=== PATIENT | female | born 1995 | race Caucasian/White ===

== ENCOUNTER 2016-10-01 23:08 | Emergency (ER) | payer OTHER ==
--- NOTE | 2016-10-02 02:22 | ED ORDER SUMMARY ---
..... Patient: HELENA CAMPOS OrderSheet [facility] VisitID: [id number] [address] [place] [address] 21y, F Registration Date/Time: 10/01/2016 ORDER SHEET Weight: 106.1 kg (stated) Allergies: Amoxicillin GENERAL ORDERS: MEDICATION ORDERS: Zofran ODT PO 4 mg (NOW) (02:19 10/02/2016 Tiesha Snider) (Ack 2:19 Doris R.N.) (2:21 Doris R.N.) IV FLUIDS: ORDER SHEET NOTES: [Electronically signed by Sherry Gaffney R.N. (02:35 10/02/2016)] [Electronically signed by Stoney Haney Dr. (09:52 10/02/2016)] [Electronically locked/signed by Sherry Gaffney R.N. (02:35 10/02/2016)]
--- NOTE | 2016-10-02 02:22 | ED ORDER SUMMARY ---
..... Patient: HELENA CAMPOS OrderSheet [facility] VisitID: [id number] [address] [place] [address] 21y, F Registration Date/Time: 10/01/2016 ORDER SHEET Weight: 106.1 kg (stated) Allergies: Amoxicillin GENERAL ORDERS: MEDICATION ORDERS: Zofran ODT PO 4 mg (NOW) (02:19 10/02/2016 Tiesha Snider) (Ack 2:19 Doris R.N.) (2:21 Doris R.N.) IV FLUIDS: ORDER SHEET NOTES: [Electronically signed by Sherry Gaffney R.N. (02:35 10/02/2016)] [Electronically signed by Stoney Haney Dr. (09:52 10/02/2016)] [Electronically locked/signed by Sherry Gaffney R.N. (02:35 10/02/2016)]
--- NOTE | 2016-10-02 02:22 | ED NURSING NOTES ---
Clinical Report - Nurses [facility] [address] [place] [address] 10/01/2016 23:08 Patient: HELENA CAMPOS TRIAGE Triage time 23:09. Acuity: LEVEL 4. Chief Complaint: TENDER AREA. Alert. --23:16 Sherry Gaffney R.N. 23:09 10/01/16. BP: 132/83. HR: 120. RR: 18. O2 saturation: 99% on room air. Temp: 99.2 F (oral). Dueñas-Gil pain scale: 4/10. --23:16 Sherry Gaffney R.N. Weight: 106.1 kg stated. Height/Length: 63 inches Per Patient. BMI: 41.4. --23:15 Sherry Gaffney R.N. Medications Tramadol HCL Oral, as needed, endometriosos. --23:12 Sherry Gaffney R.N. Sulfa antibiotic, last dose last night (lost bottle today). --23:13 Sherry Gaffney R.N. Allergies Amoxicillin. --23:12 Sherry Gaffney R.N. History Arrived by EMS. Primary physician (Deyvi ([facility])). ( pt was seen yesterday and today by [facility], today they attempted to drain wound but pt states they couldn't get anything to drain.). Reported as located on the scalp. Onset. (about 1 weeks ago). She has had diarrhea, nausea and vomiting. 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 PAST MEDICAL HX: Immunizations: up-to-date. Last normal menstrual period was 3 weeks ago. Sexual history - sexually active. No contraception. SOCIAL HX: Never smoker. Occasional alcohol use. No drug use. NUTRITIONAL RISK ASSESSMENT: The nutritional risk assessment revealed no deficiencies. FUNCTIONAL ASSESSMENT: Functional assessment: no impairments noted. --23:16 Sherry Gaffney R.N. PROBLEMS: Gastroenteritis. Gastritis. --23:14 Gaffney, Sherry, R.N. ADDITIONAL SURGERIES: Endometrial biopsy. R eye surgery ([facility]). --23:14 Sherry Gaffney R.N. Interventions ID band on patient. To treatment room. --23:16 Sherry Gaffney R.N. PHYSICAL ASSESSMENT To room via stretcher. Patient gowned. GENERAL / NEURO / PSYCH: Alert. The patient does not appear to be in acute distress. Oriented X 4. HEENT: Mucous membranes are pink. RESPIRATORY: Respirations not labored. CVS: Capillary refill less than 2 seconds. SKIN: Skin is warm and dry. --23:16 Sherry Gaffney R.N. NURSING PROGRESS NOTES Head of bed elevated. Two patient identifiers checked. Call light placed in reach. Side rails up x 1. Bed placed in lowest position. Brakes of bed on. --23:16 Sherry Gaffney R.N. Patient ready for evaluation- chart flagged. --23:16 Sherry Gaffney R.N. Family informed about reason for wait and about plan of care. --00:49 Sherry Gaffney R.N. 02:21 10/02/2016 Zofran ODT (Ondansetron) PO Oral Disintegrating Tablets 4 mg given. Allergies verified and confirmed 5 rights. --02:21 Sherry Gaffney R.N. DISPOSITION / DISCHARGE Condition at departure: stable. No learning barriers present. Discharge instructions provided and reviewed with the patient. Reviewed medication(s) side effects, precautions, dosing and course information. Prescription(s) given to the patient. Patient verbalized understanding. Written instructions provided in Azeri. The patient was discharged home and accompanied by diagnostics tech. She left the Emergency Department ambulatory and via private vehicle. Gut Puller driving. --02:34 Sherry Gaffney R.N. 02:33 10/02/16. BP: 125/74. HR: 118. RR: 15. O2 saturation: 98% on room air. Temp: deferred. Dueñas-Gil pain scale: 210. --02:34 Sherry Gaffney R.N. ( EDMD notified of heart rate at discharge.). --02:34 Sherry Gaffney R.N. Locked/Released at 10/02/2016 2:35 by Sherry Gaffney R.N.
--- NOTE | 2016-10-02 02:22 | ED NURSING NOTES ---
Clinical Report - Nurses [facility] [address] [place] [address] 10/01/2016 23:08 Patient: HELENA CAMPOS TRIAGE Triage time 23:09. Acuity: LEVEL 4. Chief Complaint: TENDER AREA. Alert. --23:16 Sherry Gaffney R.N. 23:09 10/01/16. BP: 132/83. HR: 120. RR: 18. O2 saturation: 99% on room air. Temp: 99.2 F (oral). Dueñas-Gil pain scale: 4/10. --23:16 Sherry Gaffney R.N. Weight: 106.1 kg stated. Height/Length: 63 inches Per Patient. BMI: 41.4. --23:15 Sherry Gaffney R.N. Medications Tramadol HCL Oral, as needed, endometriosos. --23:12 Sherry Gaffney R.N. Sulfa antibiotic, last dose last night (lost bottle today). --23:13 Sherry Gaffney R.N. Allergies Amoxicillin. --23:12 Sherry Gaffney R.N. History Arrived by EMS. Primary physician (Deyvi ([facility])). ( pt was seen yesterday and today by [facility] [place], today they attempted to drain wound but pt states they couldn't get anything to drain.). Reported as located on the scalp. Onset. (about 1 weeks ago). She has had diarrhea, nausea and vomiting. 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 PAST MEDICAL HX: Immunizations: up-to-date. Last normal menstrual period was 3 weeks ago. Sexual history - sexually active. No contraception. SOCIAL HX: Never smoker. Occasional alcohol use. No drug use. NUTRITIONAL RISK ASSESSMENT: The nutritional risk assessment revealed no deficiencies. FUNCTIONAL ASSESSMENT: Functional assessment: no impairments noted. --23:16 Sherry Gaffney R.N. PROBLEMS: Gastroenteritis. Gastritis. --23:14 Gaffney, Sherry, R.N. ADDITIONAL SURGERIES: Endometrial biopsy. R eye surgery ([facility]). --23:14 Sherry Gaffney R.N. Interventions ID band on patient. To treatment room. --23:16 Sherry Gaffney R.N. PHYSICAL ASSESSMENT To room via stretcher. Patient gowned. GENERAL / NEURO / PSYCH: Alert. The patient does not appear to be in acute distress. Oriented X 4. HEENT: Mucous membranes are pink. RESPIRATORY: Respirations not labored. CVS: Capillary refill less than 2 seconds. SKIN: Skin is warm and dry. --23:16 Sherry Gaffney R.N. NURSING PROGRESS NOTES Head of bed elevated. Two patient identifiers checked. Call light placed in reach. Side rails up x 1. Bed placed in lowest position. Brakes of bed on. --23:16 Sherry Gaffney R.N. Patient ready for evaluation- chart flagged. --23:16 Sherry Gaffney R.N. Family informed about reason for wait and about plan of care. --00:49 Sherry Gaffney R.N. 02:21 10/02/2016 Zofran ODT (Ondansetron) PO Oral Disintegrating Tablets 4 mg given. Allergies verified and confirmed 5 rights. --02:21 Sherry Gaffney R.N. DISPOSITION / DISCHARGE Condition at departure: stable. No learning barriers present. Discharge instructions provided and reviewed with the patient. Reviewed medication(s) side effects, precautions, dosing and course information. Prescription(s) given to the patient. Patient verbalized understanding. Written instructions provided in Latvian. The patient was discharged home and accompanied by label remover. She left the Emergency Department ambulatory and via private vehicle. Voice Over Announcer driving. --02:34 Sherry Gaffney R.N. 02:33 10/02/16. BP: 125/74. HR: 118. RR: 15. O2 saturation: 98% on room air. Temp: deferred. Dueñas-Gil pain scale: 210. --02:34 Sherry Gaffney R.N. ( EDMD notified of heart rate at discharge.). --02:34 Sherry Gaffney R.N. Locked/Released at 10/02/2016 2:35 by Sherry Gaffney R.N.
--- NOTE | 2016-10-02 02:22 | ED CLINICAL REPORT ---
Clinical Report - Physicians/Mid Levels [facility] [address] [place] [address] 10/01/2016 23:08 Patient: HELENA CAMPOS Time Seen: 01:08; initial patient contact. Arrived- By private vehicle. Historian- patient. HISTORY OF PRESENT ILLNESS Chief Complaint: SKIN RASH and BOIL. This started about 1 week ago and is still present. It was gradual in onset. It is described as itchy and painful. It has been located on the scalp. No recent medication or insect bite. Similar symptoms previously: None. Recent medical care: The patient was seen recently in a clinic (Started on Sulfe, lost Rx. Attempted I&D, nothing drained). REVIEW OF SYSTEMS No fever or enlarged lymph nodes. All systems otherwise negative, except as recorded above. PAST HISTORY Gastroenteritis. Gastritis. ADDITIONAL SURGERIES: Endometrial biopsy. R eye surgery ([facility]). SOCIAL HISTORY Never smoker. Occasional alcohol use. No drug use. ADDITIONAL NOTES The nursing notes have been reviewed. PHYSICAL EXAM Vital Signs: 10/01/2016 23:09 BP: 132/83. HR: 120. RR: 18. O2 saturation: 99%. Temp: 99.2 F. Dueñas-Gil pain scale: 4/10. Have been reviewed. Blood pressure normal. Tachycardic. Respiratory rate normal. Temperature normal. Oxygen saturation normal. Appearance: Alert. Oriented X3. Anxious. Neck: No lymphadenopathy. Skin: Single small tender indurated area to the scalp. No fluctuance, pointing, drainage or cellulitis. Mild, papular, weeping skin rash on the scalp. Neuro: Oriented X 3. PROGRESS AND PROCEDURES Disposition: Discharged home in good and improved condition. Condition: good. CLINICAL IMPRESSION Nonbullous impetigo Sebaceous cyst INSTRUCTIONS Prescription Medications: Zofran (orally disintegrating tablets) 4 mg: take 1 orally every 6 hours as needed for nausea and vomiting. Dispense ten (10). No refill. Substitution is permissible. Clindamycin 300 mg: take 1 capsule orally every 6 hours for 7 days. No refill. Follow-up: Screening today revealed the patient's blood pressure to be in the pre-hypertensive range. The patient should follow up with a primary care provider for blood pressure management. Follow-up with: Duran Gómez MD, General Surgeon, , [facility], [address] [place] [address] [address], [place], [id number] Follow up. Reason for referral: Inclusion cyst of scalp. (Electronically signed by Stoney Haney Dr. 10/02/2016 9:52)
--- NOTE | 2016-10-02 02:22 | ED CLINICAL REPORT ---
Clinical Report - Physicians/Mid Levels [facility] [address] [place] [address] 10/01/2016 23:08 Patient: HELENA CAMPOS Time Seen: 01:08; initial patient contact. Arrived- By private vehicle. Historian- patient. HISTORY OF PRESENT ILLNESS Chief Complaint: SKIN RASH and BOIL. This started about 1 week ago and is still present. It was gradual in onset. It is described as itchy and painful. It has been located on the scalp. No recent medication or insect bite. Similar symptoms previously: None. Recent medical care: The patient was seen recently in a clinic (Started on Sulfe, lost Rx. Attempted I&D, nothing drained). REVIEW OF SYSTEMS No fever or enlarged lymph nodes. All systems otherwise negative, except as recorded above. PAST HISTORY Gastroenteritis. Gastritis. ADDITIONAL SURGERIES: Endometrial biopsy. R eye surgery ([facility]). SOCIAL HISTORY Never smoker. Occasional alcohol use. No drug use. ADDITIONAL NOTES The nursing notes have been reviewed. PHYSICAL EXAM Vital Signs: 10/01/2016 23:09 BP: 132/83. HR: 120. RR: 18. O2 saturation: 99%. Temp: 99.2 F. Dueñas-Gil pain scale: 4/10. Have been reviewed. Blood pressure normal. Tachycardic. Respiratory rate normal. Temperature normal. Oxygen saturation normal. Appearance: Alert. Oriented X3. Anxious. Neck: No lymphadenopathy. Skin: Single small tender indurated area to the scalp. No fluctuance, pointing, drainage or cellulitis. Mild, papular, weeping skin rash on the scalp. Neuro: Oriented X 3. PROGRESS AND PROCEDURES Disposition: Discharged home in good and improved condition. Condition: good. CLINICAL IMPRESSION Nonbullous impetigo Sebaceous cyst INSTRUCTIONS Prescription Medications: Zofran (orally disintegrating tablets) 4 mg: take 1 orally every 6 hours as needed for nausea and vomiting. Dispense ten (10). No refill. Substitution is permissible. Clindamycin 300 mg: take 1 capsule orally every 6 hours for 7 days. No refill. Follow-up: Screening today revealed the patient's blood pressure to be in the pre-hypertensive range. The patient should follow up with a primary care provider for blood pressure management. Follow-up with: Duran Gómez MD, General Surgeon, , [facility], [address] [place] [address] [address], [place], [id number] Follow up. Reason for referral: Inclusion cyst of scalp. (Electronically signed by Stoney Haney Dr. 10/02/2016 9:52)
--- NOTE | 2016-10-02 09:52 | ED DISCHARGE INSTRUCTIONS ---
Patient: HELENA CAMPOS General Instructions Located [facility] VisitID: [id number] [address] [place] [address] 21y, F Registration Date/Time: 10/01/2016 Nonbullous impetigo Sebaceous cyst INSTRUCTIONS Prescription Medications: Zofran (orally disintegrating tablets) 4 mg: take 1 orally every 6 hours as needed for nausea and vomiting. Dispense ten (10). No refill. Substitution is permissible. Clindamycin 300 mg: take 1 capsule orally every 6 hours for 7 days. No refill. Follow-up: Screening today revealed the patient's blood pressure to be in the pre-hypertensive range. The patient should follow up with a primary care provider for blood pressure management. Follow-up with: Duran Gómez MD, General Surgeon, , [facility], [address] [place] [address] Follow up. Reason for referral: Inclusion cyst of scalp. ADDITIONAL INFORMATION Impetigo Impetigo is the name for a bacterial infection of the skin. It is common in children. It may start as an infected insect bite or scratch and spread rapidly to other areas of the body. It is contagious and can be given to other children by touching. The sores usually have a alvarez brown crust and grow gradually larger as they spread. Impetigo requires treatment with an antibiotic. Home care The following guidelines will help you care for your infection at home: Trim fingernails and cover sores with an adhesive bandage if necessary to prevent scratching. Picking at the sores may leave a scar. Wash hands (yours and your child's) often. This will avoid spreading the infection to other parts of the body and to other children. Do not let your child share washcloths, towels, pillows, sheets, or clothes with others. Wash these items in hot water before using again. The sores should be washed three times a day with soap and water. Use a washcloth to scrub the sores and remove the crust. Then apply an antibacterial cream as directed. If antibiotic pills or liquid was prescribed, be sure your child takes all the medicine until it is gone. Your child should stay out of school until completing two full days of antibiotic treatment. Use acetaminophen for fever, fussiness or discomfort, unless another medicine was prescribed. In infants over six months of age, you may use ibuprofen instead of acetaminophen. If your child has chronic liver or kidney disease or has ever had a stomach ulcer or GI bleeding, talk with your doctor before using these medicines. (Aspirin should never be used in anyone under 18 years of age who is ill with a fever. It may cause severe liver damage. Follow-up care Follow up with your doctor or this facility if the sores continue to spread after three days of treatment. It will take about 710 days to heal completely. When to seek medical care Get prompt medical attention if any of the following occur: Increasing number of sores or spreading areas of redness after two days of treatment with antibiotics Increasing swelling, or pain Fever of 100.4F (38C) oral or 101.4F (38.5C) rectal or higher, not better with fever medication Increased amounts of fluid or pus coming from the sores Unusual drowsiness, weakness, or change in behavior Loss of appetite or vomiting Sebaceous Cyst [No Infection] A Sebaceous Cyst occurs when the opening of an oil gland in the skin becomes blocked. The gland swells with skin oil and skin cells. As it gets bigger, it appears as a small painless lump under the skin. Unless a sebaceous cyst becomes infected, it is painless and causes no symptoms. Home Care: 1) Clean the cyst area when bathing or showering. 2) Be alert for signs of infection listed below. Follow Up with your doctor or as advised by our staff. Get Prompt Medical Attention if any of the following occur: -- Swelling, redness or pain -- Pus coming from the cyst Ondansetron Oral disintegrating tablet What is this medicine? ONDANSETRON (on SUSAN se neal) is used to treat nausea and vomiting caused by chemotherapy. It is also used to prevent or treat nausea and vomiting after surgery. How should I use this medicine? These tablets are made to dissolve in the mouth. Do not try to push the tablet through the foil backing. With dry hands, peel away the foil backing and gently remove the tablet. Place the tablet in the mouth and allow it to dissolve, then swallow. While you may take these tablets with water, it is not necessary to do so. Talk to your training mgr regarding the use of this medicine in children. Special care may be needed. What side effects may I notice from receiving this medicine? Side effects that you should report to your doctor or health caregiver services home as soon as possible: allergic reactions like skin rash, itching or hives, swelling of the face, lips, or tongue breathing problems dizziness fast or irregular heartbeat feeling faint or lightheaded, falls fever and chills swelling of the hands and feet tightness in the chest Side effects that usually do not require medical attention (report to your doctor or health caregiver services home if they continue or are bothersome): constipation or diarrhea headache What may interact with this medicine? Do not take this medicine with any of the following medications: -apomorphine -cisapride -dofetilide -dronedarone -pimozide -thioridazine -ziprasidone This medicine may also interact with the following medications: -carbamazepine -phenytoin -rifampicin -tramadol -other medicines that prolong the QT interval (cause an abnormal heart rhythm) What if I miss a dose? If you miss a dose, take it as soon as you can. If it is almost time for your next dose, take only that dose. Do not take double or extra doses. Where should I keep my medicine? Keep out of the reach of children. Store between 2 and 30 degrees C (36 and 86 degrees F). Throw away any unused medicine after the expiration date. What should I tell my health care provider before I take this medicine? They need to know if you have any of these conditions: heart disease history of irregular heartbeat liver disease low levels of magnesium or potassium in the blood an unusual or allergic reaction to ondansetron, granisetron, other medicines, foods, dyes, or preservatives or trying to get breast-feeding What should I watch for while using this medicine? Check with your doctor or health caregiver services home as soon as you can if you have any sign of an allergic reaction. Clindamycin Hydrochloride Oral capsule What is this medicine? CLINDAMYCIN (KLIN da MYE sin) is a lincosamide antibiotic. It is used to treat certain kinds of bacterial infections. It will not work for colds, flu, or other viral infections. How should I use this medicine? Take this medicine by mouth with a full glass of water. Follow the directions on the prescription label. You can take this medicine with food or on an empty stomach. If the medicine upsets your stomach, take it with food. Take your medicine at regular intervals. Do not take your medicine more often than directed. Take all of your medicine as directed even if you think your are better. Do not skip doses or stop your medicine early. Talk to your training mgr regarding the use of this medicine in children. Special care may be needed. What side effects may I notice from receiving this medicine? Side effects that you should report to your doctor or health caregiver services home as soon as possible: allergic reactions like skin rash, itching or hives, swelling of the face, lips, or tongue dark urine pain on swallowing redness, blistering, peeling or loosening of the skin, including inside the mouth unusual bleeding or bruising unusually weak or tired yellowing of eyes or skin Side effects that usually do not require medical attention (report to your doctor or health caregiver services home if they continue or are bothersome): diarrhea itching in the rectal or genital area joint pain nausea, vomiting stomach pain What may interact with this medicine? chloramphenicol erythromycin kaolin products What if I miss a dose? If you miss a dose, take it as soon as you can. If it is almost time for your next dose, take only that dose. Do not take double or extra doses. Where should I keep my medicine? Keep out of the reach of children. Store at room temperature between 20 and 25 degrees C (68 and 77 degrees F). Throw away any unused medicine after the expiration date. What should I tell my health care provider before I take this medicine? They need to know if you have any of these conditions: kidney disease liver disease stomach problems like colitis an unusual or allergic reaction to clindamycin, lincomycin, or other medicines, foods, dyes like tartrazine or preservatives or trying to get breast-feeding What should I watch for while using this medicine? Tell your doctor or healthcare professional if your symptoms do not start to get better or if they get worse. Do not treat diarrhea with over the counter products. Contact your doctor if you have diarrhea that lasts more than 2 days or if it is severe and watery. You have been given the following additional information: Impetigo (Child) Sebaceous Cyst Ondansetron Oral disintegrating tablet Clindamycin Hydrochloride Oral capsule (Electronically signed by Stoney Haney Dr. 10/02/2016 9:52)
--- NOTE | 2016-10-02 09:52 | ED MED RECONCILIATION SUMMARY ---
Patient: HELENA CAMPOS Medication Reconciliation Report [facility] VisitID: [id number] [address] [place] [address] 21y, F Registration Date/Time: 10/01/2016 Weight: 106.1 kg Height/Length: 63 in. BMI: 41.4 ALLERGIES: Amoxicillin The patient's Home Medications are listed below: THE FOLLOWING MEDICATIONS NEED TO BE RECONCILED: Sulfa antibiotic, last dose: last night, lost bottle today Tramadol HCL Oral, endometriosos The source(s) of the original Home Medication information: Not obtained. The following Medications were given to the patient in the Emergency Department: Zofran ODT [PO] PO 4 mg, administered: 10/02/2016 2:21:00 AM The following Medications were prescribed to the patient: Zofran (orally disintegrating tablets) 4 mg: take 1 orally every 6 hours as needed for nausea and vomiting. Dispense ten (10). No refill. Substitution is permissible. -- Stoney Haney Dr. Clindamycin 300 mg: take 1 capsule orally every 6 hours for 7 days. No refill. -- Stoney Haney Dr.
--- NOTE | 2016-10-02 09:52 | ED MED RECONCILIATION SUMMARY ---
Patient: HELENA CAMPOS Medication Reconciliation Report [facility] VisitID: [id number] [address] [place] [address] 21y, F Registration Date/Time: 10/01/2016 Weight: 106.1 kg Height/Length: 63 in. BMI: 41.4 ALLERGIES: Amoxicillin The patient's Home Medications are listed below: THE FOLLOWING MEDICATIONS NEED TO BE RECONCILED: Sulfa antibiotic, last dose: last night, lost bottle today Tramadol HCL Oral, endometriosos The source(s) of the original Home Medication information: Not obtained. The following Medications were given to the patient in the Emergency Department: Zofran ODT [PO] PO 4 mg, administered: 10/02/2016 2:21:00 AM The following Medications were prescribed to the patient: Zofran (orally disintegrating tablets) 4 mg: take 1 orally every 6 hours as needed for nausea and vomiting. Dispense ten (10). No refill. Substitution is permissible. -- Stoney Haney Dr. Clindamycin 300 mg: take 1 capsule orally every 6 hours for 7 days. No refill. -- Stoney Haney Dr.
--- NOTE | 2016-10-02 09:52 | ED DISCHARGE INSTRUCTIONS ---
Patient: HELENA CAMPOS General Instructions [facility] VisitID: [id number] [address] [place] [address] 21y, F Registration Date/Time: 10/01/2016 Nonbullous impetigo Sebaceous cyst INSTRUCTIONS Prescription Medications: Zofran (orally disintegrating tablets) 4 mg: take 1 orally every 6 hours as needed for nausea and vomiting. Dispense ten (10). No refill. Substitution is permissible. Clindamycin 300 mg: take 1 capsule orally every 6 hours for 7 days. No refill. Follow-up: Screening today revealed the patient's blood pressure to be in the pre-hypertensive range. The patient should follow up with a primary care provider for blood pressure management. Follow-up with: Duran Gómez MD, General Surgeon, , [facility], [address] [place] [address] Follow up. Reason for referral: Inclusion cyst of scalp. ADDITIONAL INFORMATION Impetigo Impetigo is the name for a bacterial infection of the skin. It is common in children. It may start as an infected insect bite or scratch and spread rapidly to other areas of the body. It is contagious and can be given to other children by touching. The sores usually have a alvarez brown crust and grow gradually larger as they spread. Impetigo requires treatment with an antibiotic. Home care The following guidelines will help you care for your infection at home: Trim fingernails and cover sores with an adhesive bandage if necessary to prevent scratching. Picking at the sores may leave a scar. Wash hands (yours and your child's) often. This will avoid spreading the infection to other parts of the body and to other children. Do not let your child share washcloths, towels, pillows, sheets, or clothes with others. Wash these items in hot water before using again. The sores should be washed three times a day with soap and water. Use a washcloth to scrub the sores and remove the crust. Then apply an antibacterial cream as directed. If antibiotic pills or liquid was prescribed, be sure your child takes all the medicine until it is gone. Your child should stay out of school until completing two full days of antibiotic treatment. Use acetaminophen for fever, fussiness or discomfort, unless another medicine was prescribed. In infants over six months of age, you may use ibuprofen instead of acetaminophen. If your child has chronic liver or kidney disease or has ever had a stomach ulcer or GI bleeding, talk with your doctor before using these medicines. (Aspirin should never be used in anyone under 18 years of age who is ill with a fever. It may cause severe liver damage. Follow-up care Follow up with your doctor or this facility if the sores continue to spread after three days of treatment. It will take about 710 days to heal completely. When to seek medical care Get prompt medical attention if any of the following occur: Increasing number of sores or spreading areas of redness after two days of treatment with antibiotics Increasing swelling, or pain Fever of 100.4F (38C) oral or 101.4F (38.5C) rectal or higher, not better with fever medication Increased amounts of fluid or pus coming from the sores Unusual drowsiness, weakness, or change in behavior Loss of appetite or vomiting Sebaceous Cyst [No Infection] A Sebaceous Cyst occurs when the opening of an oil gland in the skin becomes blocked. The gland swells with skin oil and skin cells. As it gets bigger, it appears as a small painless lump under the skin. Unless a sebaceous cyst becomes infected, it is painless and causes no symptoms. Home Care: 1) Clean the cyst area when bathing or showering. 2) Be alert for signs of infection listed below. Follow Up with your doctor or as advised by our staff. Get Prompt Medical Attention if any of the following occur: -- Swelling, redness or pain -- Pus coming from the cyst Ondansetron Oral disintegrating tablet What is this medicine? ONDANSETRON (on SUSAN se neal) is used to treat nausea and vomiting caused by chemotherapy. It is also used to prevent or treat nausea and vomiting after surgery. How should I use this medicine? These tablets are made to dissolve in the mouth. Do not try to push the tablet through the foil backing. With dry hands, peel away the foil backing and gently remove the tablet. Place the tablet in the mouth and allow it to dissolve, then swallow. While you may take these tablets with water, it is not necessary to do so. Talk to your television receiver analyzer regarding the use of this medicine in children. Special care may be needed. What side effects may I notice from receiving this medicine? Side effects that you should report to your doctor or health gericare aide as soon as possible: allergic reactions like skin rash, itching or hives, swelling of the face, lips, or tongue breathing problems dizziness fast or irregular heartbeat feeling faint or lightheaded, falls fever and chills swelling of the hands and feet tightness in the chest Side effects that usually do not require medical attention (report to your doctor or health gericare aide if they continue or are bothersome): constipation or diarrhea headache What may interact with this medicine? Do not take this medicine with any of the following medications: -apomorphine -cisapride -dofetilide -dronedarone -pimozide -thioridazine -ziprasidone This medicine may also interact with the following medications: -carbamazepine -phenytoin -rifampicin -tramadol -other medicines that prolong the QT interval (cause an abnormal heart rhythm) What if I miss a dose? If you miss a dose, take it as soon as you can. If it is almost time for your next dose, take only that dose. Do not take double or extra doses. Where should I keep my medicine? Keep out of the reach of children. Store between 2 and 30 degrees C (36 and 86 degrees F). Throw away any unused medicine after the expiration date. What should I tell my health care provider before I take this medicine? They need to know if you have any of these conditions: heart disease history of irregular heartbeat liver disease low levels of magnesium or potassium in the blood an unusual or allergic reaction to ondansetron, granisetron, other medicines, foods, dyes, or preservatives or trying to get breast-feeding What should I watch for while using this medicine? Check with your doctor or health gericare aide as soon as you can if you have any sign of an allergic reaction. Clindamycin Hydrochloride Oral capsule What is this medicine? CLINDAMYCIN (KLIN da MYE sin) is a lincosamide antibiotic. It is used to treat certain kinds of bacterial infections. It will not work for colds, flu, or other viral infections. How should I use this medicine? Take this medicine by mouth with a full glass of water. Follow the directions on the prescription label. You can take this medicine with food or on an empty stomach. If the medicine upsets your stomach, take it with food. Take your medicine at regular intervals. Do not take your medicine more often than directed. Take all of your medicine as directed even if you think your are better. Do not skip doses or stop your medicine early. Talk to your television receiver analyzer regarding the use of this medicine in children. Special care may be needed. What side effects may I notice from receiving this medicine? Side effects that you should report to your doctor or health gericare aide as soon as possible: allergic reactions like skin rash, itching or hives, swelling of the face, lips, or tongue dark urine pain on swallowing redness, blistering, peeling or loosening of the skin, including inside the mouth unusual bleeding or bruising unusually weak or tired yellowing of eyes or skin Side effects that usually do not require medical attention (report to your doctor or health gericare aide if they continue or are bothersome): diarrhea itching in the rectal or genital area joint pain nausea, vomiting stomach pain What may interact with this medicine? chloramphenicol erythromycin kaolin products What if I miss a dose? If you miss a dose, take it as soon as you can. If it is almost time for your next dose, take only that dose. Do not take double or extra doses. Where should I keep my medicine? Keep out of the reach of children. Store at room temperature between 20 and 25 degrees C (68 and 77 degrees F). Throw away any unused medicine after the expiration date. What should I tell my health care provider before I take this medicine? They need to know if you have any of these conditions: kidney disease liver disease stomach problems like colitis an unusual or allergic reaction to clindamycin, lincomycin, or other medicines, foods, dyes like tartrazine or preservatives or trying to get breast-feeding What should I watch for while using this medicine? Tell your doctor or healthcare professional if your symptoms do not start to get better or if they get worse. Do not treat diarrhea with over the counter products. Contact your doctor if you have diarrhea that lasts more than 2 days or if it is severe and watery. You have been given the following additional information: Impetigo (Child) Sebaceous Cyst Ondansetron Oral disintegrating tablet Clindamycin Hydrochloride Oral capsule (Electronically signed by Stoney Haney Dr. 10/02/2016 9:52)
--- NOTE | 2016-10-02 09:52 | ED MAR SUMMARY ---
..... Medication Administration Record [facility] [address] [place] [address] Patient: HELENA CAMPOS Visit ID: [id number] 21y, F Weight: 106.1 kg Height/Length: 63 in BMI: 41.4 ALLERGIES: Amoxicillin Given 02:21 10/02/2016 Sherry Gaffney RGeetha Medication Administered: ZOFRAN ODT [PO] (ONDANSETRON), Dose: 4 mg Oral Disintegrating Tablets PO. Medication Ordered: Zofran ODT PO 4 mg (NOW).
--- NOTE | 2016-10-02 09:52 | ED MAR SUMMARY ---
..... Medication Administration Record Located Within [facility] [address] [place] [address] Patient: HELENA CAMPOS Visit ID: [id number] 21y, F Weight: 106.1 kg Height/Length: 63 in BMI: 41.4 ALLERGIES: Amoxicillin Given 02:21 10/02/2016 Sherry Gaffney RGeetha Medication Administered: ZOFRAN ODT [PO] (ONDANSETRON), Dose: 4 mg Oral Disintegrating Tablets PO. Medication Ordered: Zofran ODT PO 4 mg (NOW).
== END 2016-10-02 02:30 | disposition home or self-care (01) ==
LOC: ED SRH 23:08
DX: L72.3 Sebaceous cyst (principal); L01.01 Non-bullous impetigo; Z79.2 Long term (current) use of antibiotics; Z88.1 Allergy status to other antibiotic agents